=== PATIENT | female | born 1945 | race Caucasian/White ===

== ENCOUNTER 2016-07-03 11:50 | Day surgery (SDC) | payer MEDICARE, BC ==
[~2016-07-03] VITALS: Ht 167.6 cm; Wt 69.3 kg
--- NOTE | ~2016-07-03 | CATH ---
Cardiac Diagnostic Report Demographics Patient Name ROXIE King Gender Female Date of 1945 Age 70 year(s) Patient Number [id number] Date of Study 07/03/2016 Visit Number [id number] Room Number Corporate ID Ht 167.64 cm Wt 68.95 kg Accession Number [id number] BSA 1.78 m kg/m Referring [facility] Primary Physician Physician John Performing [facility] Secondary Physician Physician John Diagnostic [place] Assisting Physician Physician John Interventional Physician [employer] Teacher Physician Findings and Conclusions Diagnostic Findings and Conclusion Severe pre-capillary pulmonary hypertension. Normal wedge pressure. Study done on room air. Diagnostic Recommendations Will follow up with pulmonary hypertension clinic. Procedure Description The patient was brought to the diagnostic cardiac catheterization-EP laboratory in the fasting, non-sedated state. Informed consent was obtained in the written and verbal form after the risks and benefits were explained. The patient had no further questions and agreed to proceed. The planned puncture-incision site(s) were shaved and prepped with ChloraPrep and draped in the usual sterile manner. Conscious sedation, supplemental oxygen, and pain control medications were delivered by a registered nurse under physician guidance. Surface ECG rhythm, blood pressure measurement, and pulse oximetry were monitored throughout the procedure. Venous access. The access site was infiltrated with lidocaine. The right brachial vessel was entered with the Seldinger technique. A 7F Sandhya sheath was advanced into the vessel and used for catheter placement. Right heart catheterization. A 7F [place] Darian catheter was successfully advanced to the right atrium, right ventricle, pulmonary artery, and pulmonary artery wedge position under fluoroscopic guidance. Resting hemodynamics were obtained. Measurements included pressures, arterial and venous oxygen saturation samples, and cardiac output. The [place] was removed without difficulty. Venous hemostasis was achieved using manual pressure. The patient was transferred to a regular nursing floor via cart accompanied by a nurse. The patient left the laboratory in stable condition. Diagnostic Cath Status: Elective Procedure Procedure Type Diagnostic procedure:Angiography:, RHC Indications: Pulmonary HTN and Dyspnea. The procedure was explained in detail to the patient. Risks, complications and alternative treatments were reviewed. Written consent was obtained. Medications Reviewed with Patient prior to Procedure. Complications: No Complication. Procedure Data Procedure Date Date: 07/03/2016Start: 01:28 PMEnd: 02:08 PM Entry Locations - Percutaneous access was performed through the Right Brachial vein (Primary location). A 7 Fr sheath was inserted. Hemostasis was successfully obtained using Manual Compression. Fluoroscopy Time: Diagnostic: 0:54 minutes. Total: 0:54 minutes. Fluoroscopy Dose: Diagnostic: 4 mGy. Total: 4 mGy. Estimated Blood Loss: 5 ml. Medical History Allergies - Penicillin. - Sulfa. - Other:(keflex, macrobid). Risk Factors The patient risk factors include:hypercholesterolemia, hypertension, family history of premature CAD appeared at age 60 and dyslipidemia. Admission Data Admission Date: 07/03/2016 Admission Time: 11:50 AM Insurance Payors: Medicare. Hemodynamics Condition: Rest O2 Consumption: Estimated: 165.11Heart Rate: 70 bpm Oxygen Saturation +--------+-----+----+ +----+ + !Location!pCO2 !pO2 !% Saturation !Hgb !O2 Content ! +--------+-----+----+ +----+ + !PA ! ! !56 !13.7! ! +--------+-----+----+ +----+ + !RV ! ! !57.1 !13.7! ! +--------+-----+----+ +----+ + !AO ! ! !94 !13.7! ! +--------+-----+----+ +----+ + !PA ! ! !56.1 !13.7! ! +--------+-----+----+ +----+ + Pressures (mmHg) +-----+ + !Site !Pressure ! +-----+ + !RA !01/24 (8) ! +-----+ + !RV ! ,11 ! +-----+ + !PA !96/35 (57) ! +-----+ + !PCW ! (15) ! +-----+ + !PCW ! () ! +-----+ + Cardiac Output + + +-----+ !Time !Cardiac Output (l/min) !Use ! + + +-----+ !07/03/2016 01:51 PM !2.94 !True ! + + +-----+ !07/03/2016 01:52 PM !2.88 !True ! + + +-----+ !07/03/2016 01:52 PM !2.55 !True ! + + +-----+ Cardiac Output +-------+ + + + !Method !CO (l/min) !CI (l/min/m2) !SV (ml) ! +-------+ + + + !Derik !2.34 !1.3 !33.31 ! +-------+ + + + !Thermal!2.79 !1.6 !37.7 ! +-------+ + + + Shunts Oxygen Values O2 Capacity 186.32 O2 Consumption 165.11 Flows (l/min) Qs 2.34 Qe/Qp 1 Qp 2.34 Qp/Qs 1 Qe 2.34 Vascular Resistance (dynes x sec x cm-5) + +----+---+-----+-----+---------+-------+ !CO method !TSVR!SVR!TPVR !PVR !TPVR/TSVR!PVR/SVR! + +----+---+-----+-----+---------+-------+ !Derik ! ! !24.51!18.15! ! ! + +----+---+-----+-----+---------+-------+ !Thermal ! ! !20.55!15.22! ! ! + +----+---+-----+-----+---------+-------+ !Qp or Qs ! ! !24.51!18.15! ! ! + +----+---+-----+-----+---------+-------+ Signatures
--- NOTE | 2016-07-12 16:48 | HP ---
ADMIT: 07/03/2016 RM/LOC: [facility] MR#: [id number] [address] [id number] EMILY FA[address]IN [address] [place], [place] [address] History and Physical SEX: F AGE: 70 : 1945 DATE OF SERVICE: HISTORY OF PRESENT ILLNESS: Emily is a pleasant 70-year-old female with history of nonobstructive coronary artery disease and scleroderma. She was found to have exertional hypoxemia last fall and was found to have right-to- left shunting on bubble study. After consultation with Pulmonary, she underwent closure with a 30 mm GORE CARDIOFORM Septal Occluder Device. This resolved her [id number] shunting and she said initially she felt better. However, over the last 3 weeks, she has had increase in shortness of breath. She was just seen by Dr. Hendrix again from Pulmonary and with exertion, her saturations went from 92%. She sat down the 84%. Her pulmonary pressures also are elevated on echo. She denies any chest pain. PAST MEDICAL HISTORY: 1. History of scleroderma. 2. History of sarcoidosis. 3. History of bilateral mastectomy for breast cancer. 4. History of sinusitis. 5. History of partial lobectomy. 6. History of x2. 7. History of appendectomy. 8. History of cholecystectomy. 9. History of tonsillectomy. 10.History of atrial septal closure in January 2016. 11.History of bronchitis. 12.History of GERD. 13.History of migraine headaches. 14.History of Raynaud. ALLERGIES: TO CEPHALEXIN, NITROFURANTOIN, HYDROCHLOROTHIAZIDE, TRIAMTERENE, AND SULFA. CURRENT MEDICATIONS: She is on lansoprazole daily, oxygen at night, Plavix 75 mg daily, Probiotic daily, Ventolin inhaler q.4 hours, vitamin D daily, and Vytorin 10/40 mg daily. SOCIAL HISTORY: She is . Accompanied by her . She has 2 daughters. She has never smoked. Denies any alcohol use. She does drink coffee. She eats regular diet. FAMILY HISTORY: No family history of early coronary artery disease, otherwise noncontributory. REVIEW OF SYSTEMS: GENERAL: Denies fatigue, fever, chills, sweats, rash, or weight loss. EYES: Denies double vision, blurred vision, cataracts, or glaucoma. ENT: Denies hearing loss or problems with nose, mouth or throat. RHEUMATOLOGIC: She has history of scleroderma. PULMONARY: She has had shortness of breath and exertional hypoxemia. ADMIT: 07/03/2016 RM/LOC: [facility] MR#: [id number] [address] [place] [id number] [place] [address] History and Physical SEX: F AGE: 70 : 1945 GASTROINTESTINAL: Denies heartburn or difficulty swallowing. No change in bowel habits. Denies dark or bloody stools. No history of ulcers, hiatal hernia, or gallbladder or liver disease. GENITOURINARY: Denies dysuria, hematuria, nocturia, urinary tract infection, or kidney stones. Denies history of renal insufficiency or failure. MUSCULOSKELETAL: Denies history of arthritis or gout. Denies muscle or joint pains. ENDOCRINE: Denies history of thyroid dysfunction or diabetes. HEMATOLOGIC: Denies history of anemia, easy bruising, or cancer. NEUROLOGIC: Denies chronic headaches, dizziness, syncope, stroke, seizures or numbness or tingling. PSYCHIATRIC: Denies history of mental illness or feelings of depression. PHYSICAL EXAMINATION: VITAL SIGNS: Blood pressure is 120/70, pulse was 80, oxygen was 91% on room air, respirations 18. SKIN: No rashes. EYES: Sclerae clear. No xanthelasmas. ENT: Oral mucosa is pink and moist. No jugular venous distention or carotid bruits. CHEST: Respirations are even and unlabored. Lungs are clear to auscultation. HEART: Regular rate and rhythm. Normal S1, S2. No murmurs, rubs or gallops. ABDOMEN: Soft and nontender. MUSCULOSKELETAL: Gait is normal. EXTREMITIES: Peripheral pulses palpable. No clubbing, cyanosis or edema. PSYCHIATRIC: Alert and oriented. Mood and affect are appropriate. IMPRESSION: 1. Scleroderma. 2. Exertional hypoxemia with worsening shortness of breath. 3. History of atrial septal defect status post closure. 4. Possible pulmonary hypertension. RECOMMENDATIONS: We will proceed with right heart catheterization. Given her elevated pulmonary pressures identified on echo. I discussed the risks and benefits including but not limited to arrhythmias, bleeding, and infection. The patient understands these risks and agrees to proceed. John Do MD/ nain JOB #: [id number] CC: John Do, Attending Physician Bravo Kaplan, Family Physician
== END 2016-07-03 15:15 | disposition home or self-care (01) ==
LOC: SSS 11:50
DX: I27.2 Other secondary pulmonary hypertension (principal); M34.9 Systemic sclerosis, unspecified; R06.00 Dyspnea, unspecified; Z88.0 Allergy status to penicillin; Z88.2 Allergy status to sulfonamides; Z88.8 Allergy status to other drugs, medicaments and biological substances; Z90.49 Acquired absence of other specified parts of digestive tract; Z98.890 Other specified postprocedural states; Z79.899 Other long term (current) drug therapy